=== PATIENT | male | born 1945 | race Asian ===

== ENCOUNTER 2024-12-07 14:13 | Emergency (ER) | payer OTHER, MEDICARE ==
[~2024-12-07] VITALS: Ht 172.7 cm; Wt 63.6 kg
--- NOTE | 2024-12-07 15:01 | DVH ---
CLINICAL INFORMATION: Fall injury with posterior head trauma. TECHNIQUE: Axial imaging was obtained through the brain without contrast. Coronal and sagittal reform atted images were obtained, reviewed, and stored. Images were reviewed in brain and bone windows. Al l CT scans at this medical facility are performed using dose modulation techniques as appropriate to a performed exam including the following: Automated exposure control was utilized; adjustment of the MA and/or KV according to patient size; and use of iterative reconstruction technique. CTDIvol = 53.3 3 mGy DLP = 863.9 mGy-cm COMPARISON: None FINDINGS: There is no acute intracranial hemorrhage. No mass effect or midline shift. The ventricles and sulci are within normal limits in size for age. Basal cisterns are patent. The calvarium is unre markable. Paranasal sinuses and mastoid air cells are clear. There is a small to moderate hematoma in the posterior scalp near the vertex. IMPRESSION: 1. No CT evidence of acute intracranial abnormality. 2. Small to moderate hematoma in the posterior scalp near the vertex.
[2024-12-07 15:06] LABS: Hematocrit 44.0 % (41.0-53.0); Hemoglobin 14.8 g/dL (13.5-17.5); Mean Corpuscular Hemoglobin 30.7 pg (28.0-32.0); Mean Corpuscular Volume 91.8 fL (80.0-100.0); Nucleated Red Blood Cells % 0.1 %
--- NOTE | 2024-12-07 15:11 | DVH ---
EXAM: CT CERVICAL WITHOUT CONTRAST HISTORY: Fall/trauma COMPARISON: CT HEAD WITHOUT CONTRAST on DOS: 12/07/24 CTDIvol 16.6 mGy, DLP 426.1 mGy*cm. TECHNIQUE: Multiple axial CT images of the spine were obtained using bone algorithm. Axial and magallon l reformatting was done. Bone and soft tissue windows were reviewed. FINDINGS: No evidence of definite acute fracture, spinal dislocation, or significant appearing acute subluxatio n is seen. Multilevel degenerative changes of the spine. IMPRESSION: No definite CT evidence of acute fracture or dislocation of the bony cervical spine.
[2024-12-07 15:12] LABS: Chloride 106 mmol/L (98-107); Potassium 4.1 mmol/L (3.5-5.1); Sodium 143 mmol/L (136-145)
[2024-12-07 15:13] LABS: Anion Gap 9 (5-15); Calcium 9.7 mg/dL (8.7-10.4); Carbon Dioxide 28 mmol/L (20-31)
[2024-12-07 15:18] LABS: BUN/Creatinine Ratio 10.6 (10.0-20.0); Blood Urea Nitrogen 12 mg/dL (9-23); Lipase 34 U/L (12-53)
[2024-12-07 15:19] LABS: Glucose 106 mg/dL (74-106)
[2024-12-07 15:24] LABS: Urine Protein, UAD 1+ (Negative)
[2024-12-07 16:01] VITALS: PULSE 66; RESP 18; O2SAT 95
--- NOTE | 2024-12-07 18:14 | ECG ---
[facility] Test Date: 2024-12-07 Test Time: 14:12:51 Pat Name: CHIDI IRELAND Department: [facility] ED Patient ID: [facility]-[id number] Room: Gender: M Neurosurgical Nurse: LONG : 1945 Requested By: ISRAEL NINO Order Number: [id number] Reading MD: Chidi Christianson Measurements Intervals [place] Rate: 61 P: 67 MO: 171 QRS: 42 QRSD: 91 T: 40 QT: 399 QTc: 402 Interpretive Statements Sinus rhythm Electronically Signed On 12-10-2024 14:59:50 PDT by Chidi Christianson Please click the below link to view image of tracing.
--- NOTE | 2024-12-07 18:25 | ED.PDOC ---
History of Present Illness HPI Comments 79 y/o M is BIBA in C-col[place] for c/c of syncope with fall and head injury. Per EMS personnel report, patient was standing and waiting in-line at a store when he, suddenly, became lightheaded and passed-out. He was stated to have fell backwards and had been caught by bystanders but still managed to hit the back of his head. Associated lump to posterior side of scalp. Patient reports no recollection of events. He is, currently, asymptomatic. Vital signs were stable. Time Seen by MD: 14:20 Reviewed Notes: Nurses Notes, [employer] Bl[employer] Notes, Medications, Allergies Allergies: Coded Allergies: Penicillins (Verified Allergy, Unknown, 12/07/24) Information Source: Patient, Emergency Med Personnel Mode of Arrival: EMS Severity: Moderate Timing: Hours Duration: Minutes Prehospital treatment: 12 Lead EKG, Accucheck, Plate Grainer, C-Collar Past Medical History PAST MEDICAL HISTORY: Denies Surgical History: Denies all surgeries Family History Family History: Reviewed,noncontributory to illness, No family hx of Cancer, No family hx of DM, No family hx of Heart devin, No family hx of HTN, No family hx ofKidney devin, No family hx of Liver devin, No family hx of Lung devin, No family hx of Stroke Social History Smoker: Non-Smoker Alcohol: Denies ETOH Use Drugs: Denies Drug Use Lives In: Home Constitutional: reports: weakness; denies: chills, diaphoresis, fatigue, fever, malaise, sweats, others EENTM: denies: blurred vision, double vision, ear bleeding, ear discharge, ear drainage, ear pain, ear ringing, eye pain, eye redness, hearing loss, mouth pain, mouth swelling, nasal discharge, nose bleeding, nose congestion, nose pain, photophobia, tearing, throat pain, throat swelling, voice changes, others Respiratory: denies: cough, hemoptysis, orthopnea, SOB at rest, shortness of breath, SOB with excertion, stridor, wheezing, others Cardiovascular: denies: chest pain, dizzy spells, diaphoresis, Dyspnea on exertion, edema, irregular heart beat, left arm pain, lightheadedness, palpitations, PND, syncope, others Gastrointestinal: denies: abdomen distended, abdominal pain, blood streaked bowels, constipated, diarrhea, dysphagia, difficulty swallowing, hematemesis, melena, nausea, poor appetite, poor fluid intake, rectal bleeding, rectal pain, vomiting, others Genitourinary: denies: burning, dysuria, flank pain, frequency, hematuria, incontinence, penile discharge, penile sore, pain, testicle pain, testicle swelling, urgency, others Neurological: reports: fainting, headache; denies: dizziness, left sided numbness, left sided weakness, numbness, paresthesia, pre-existing deficit, right sided numbness, right sided weakness, seizure, speech problems, tingling, tremors, weakness, others Musculoskeletal: denies: back pain, gout, joint pain, joint swelling, muscle pain, muscle stiffness, neck pain, others Integumetry: denies: bruises, change in color, change in hair/nails, dryness, laceration, lesions, lumps, rash, wounds, others Allergic/Immunocompromised: denies: Difficulty Healing, Frequent Infections, Hives, Itching, others Hematologic/Lymphatic: denies: anemia, blood clots, easy bleeding, easy bruising, swollen glands, others Endocrine: denies: excessive hunger, excessive sweating, excessive thirst, excessive urination, flushing, intolerance to cold, intolerance to heat, u nexplained weight gain, unexplained weight loss, others Psychiatric: denies: anxiety, bipolar disorder, depression, hopeless, panic disorder, schizophrenia, sleepless, suicidal, others All Other Systems: Reviewed and Negative (Comprehensive systems review obtained and negative except for what is stated in the HPI.) Physical Exam General Appearance: Mild Distress (Patient was in mild discomfort due to posterior scalp hematoma.), Normal HEENT: Head (Mild resolving hematoma noted to the superior aspect of the occipital lobe. No skull depressions or deformities. No blood loss noted. No raccoon or gunn signs.), Pharynx Normal, TMs Normal Neck: Full Range of Motion, Non-Tender, Normal, Normal Inspection Respiratory: Chest Non-Tender, Lungs Clear, No Accessory Muscle Use, No Respiratory Distress, Normal Breath Sounds Cardiovascular: No Edema, No JVD, No Murmur, No Gallop, Normal Peripheral Pulses, Regular Rate/Rhythm Breast Exam: Deferred Gastrointestinal: No Organomegaly, Non Tender, No Pulsatile Mass, Normal Bowel Sounds, Soft Genitalia: Deferred Pelvic: Deferred Rectal: Deferred Extremities: No calf tenderness, Normal capillary refill, Normal inspection, Normal range of motion, Non-tender, No pedal edema Neurologic: Alert Cerebellar Function: NOT DONE Reflexes: NOT DONE Skin: Dry, Normal Color, Warm Lymphatic: No Adenopathy Was a procedure done? Was a procedure done?: No EKG EKG : Pulse Rate (adult): 61 [place]: Normal Cardiac Rhythm: NSR Block: None Hypertrophy: None ST: Normal Differential Dx Considerations may include: vasovagal response, dehydration, electrolyte imbalance, hypotension, bradycardia, closed head injury, hematoma, UTI, among others X-Ray, Labs, Meds, VS Vital Signs Date Time Temp Pulse Resp B/P (MAP) Pulse Ox O2 Delivery O2 Flow Rate FiO2 12/07/24 18:25 61 12/07/24 18:00 98.1 62 18 146/76 (99) 98 98.1 12/07/24 16:01 66 18 95 Room Air* 0 21 12/07/24 16:01 98.2 66 18 124/71 (88) 95 98.2 12/07/24 14:15 98.6 62 16 132/82 97 98.6 12/07/24 14:13 61 Lab Test 12/07/24 17:53 12/07/24 16:12 12/07/24 15:07 12/07/24 14:46 Range/Units Troponin I High Sensitivity 5 4 3 L </=54 ng/L Urine Color Yellow Yellow Urine Clarity Turbid H Clear Urine pH 6.0 5.0-9.0 Urine Specific Doyle 1.023 1.001-1.035 Urine Protein 1+ H Negative Urine Ketones Trace Negative Urine Blood Trace H Negative /uL Urine Nitrite Negative Negative Urine Bilirubin Negative Negative Urine Urobilinogen 2 H Negative mg/dL Urine Leukocyte Esterase 1+ Negative /uL Urine RBC 81 0 - 3 /hpf Urine Microscopic WBC 25 H 0-3 /HPF Urine Squamous Epithelial Cells Few <5 /hpf Urine Calcium Oxalate Crystals Few None Seen Urine Bacteria None seen None Seen /hpf Urine Hyaline Casts Mod 0 - 2 /lpf Urine Mucus Few None Seen Urine Glucose Normal Normal mg/dL White Blood Count 7.7 4.4-10.8 10^3/uL Red Blood Count 4.80 4.5-5.90 10^6/uL Hemoglobin 14.8 13.5-17.5 g/dL Hematocrit 44.0 41.0-53.0 % Mean Corpuscular Volume 91.8 80.0-100.0 fL Mean Corpuscular Hemoglobin 30.7 28.0-32.0 pg Mean Corpuscular Hemoglobin Concent 33.5 32.0-36.0 g/dL Red Cell Distribution Width 14.2 11.8-14.3 % Platelet Count 265 140-450 10^3/uL Mean Platelet Volume 8.5 6.9-10.8 fL Neutrophils (%) (Auto) 74.4 37.0-80.0 % Lymphocytes (%) (Auto) 16.4 10.0-50.0 % Monocytes (%) (Auto) 5.7 0.0-12.0 % Eosinophils (%) (Auto) 2.6 0.0-7.0 % Basophils (%) (Auto) 0.9 0.0-2.0 % Neutrophils # (Auto) 5.7 1.6-8.6 10 ^3/uL Lymphocytes # (Auto) 1.3 0.4-5.4 10 ^3/uL Monocytes # (Auto) 0.4 0-1.3 10 ^3/uL Eosinophils # (Auto) 0.2 0-0.8 10 ^3/uL Basophils # (Auto) 0.1 0-0.2 10 ^3/uL Nucleated Red Blood Cells 0.1 % Sodium Level 143 136-145 mmol/L Potassium Level 4.1 3.5-5.1 mmol/L Chloride Level 106 98-107 mmol/L Carbon Dioxide Level 28 20-31 mmol/L Anion Gap 9 5-15 Blood Urea Nitrogen 12 9-23 mg/dL Creatinine 1.13 0.700-1.30 mg/dL Glomerular Filtration Rate Calc 67 >90 mL/min BUN/Creatinine Ratio 10.6 10.0-20.0 Serum Glucose 106 74-106 mg/dL Lactic Acid Level 1.1 0.4-2.0 mmol/L Calcium Level 9.7 8.7-10.4 mg/dL Lipase 34 12-53 U/L X-Ray, Labs, Meds, VS Comment All studies performed the ED were evaluated by me personally. CT of the head was unremarkable for any acute intracranial process. No subarachnoid hemorrhage or subdural hematoma. No skull fracture noted. Hematoma was appreciated. Serum studies was unremarkable for any systemic concerns while urinalysis confirmed a UTI. It appears probable that the UTI may have been the offending culprit in this event. Patient was given 1st dose of antibiotics prior to discharge. Advised patient utilize medication as directed Time of 1ST Reevaluation: 20:01 Reevaluation 1ST: Improved Consultation: PCP Patient Education/Counseling: Diagnosis, Treatment Family Education/Counseling: Diagnosis, Treatment, No Family Present SEPSIS Sepsis Screen Recent Procedure: No On Antibiotic Therapy: No Respiratory Rate >20: No Heart Rate >90: No Temp<36 C (96.8 F) or >38.3 C: No SBP <90 or MAP <65 mmHG: No New Acute Mental Status Change: No Is the patient on CPAP, BIPAP,: No Physician Orders Head Without Contrast (12/07/24 14:20) Cervical Without Contrast (12/07/24 14:20) Vital Signs Date Time Temp Pulse Resp B/P (MAP) Pulse Ox O2 Delivery O2 Flow Rate FiO2 12/07/24 18:25 61 12/07/24 18:00 98.1 62 18 146/76 (99) 98 98.1 12/07/24 16:01 66 18 95 Room Air* 0 21 12/07/24 16:01 98.2 66 18 124/71 (88) 95 98.2 12/07/24 14:15 98.6 62 16 132/82 97 98.6 12/07/24 14:13 61 Laboratory Tests Test 12/07/24 14:46 Lactic Acid Level 1.1 mmol/L (0.4-2.0) White Blood Count 7.7 10^3/uL (4.4-10.8) Departure 1 Departure Time of Disposition: 20:02 Impression: Primary Impression: Metabolic encephalopathy Additional Impression: UTI (urinary tract infection) Disposition: 01 HOME / SELF CARE / HOMELESS Condition: Stable Additional Instructions: Advised patient utilize antibiotics as directed until completion. Good hydration and healthy nutrition throughout. e-Prescriptions Levofloxacin Hemihydrate (LEVAQUIN 500 MG) 500 Mg Tab 1 TAB PO DAILY, #7 TAB Prov: ISRAEL NINO PAC 12/07/24 Discharged With: Self, Spouse Critical Care Note Critical Care Time?: No Stability Stability form required: No Heart Score Heart Score: Heart Score Response (Comments) Value History N/A 0 EKG N/A 0 Age N/A 0 Risk Factors N/A 0 Troponin N/A 0 Total 0 I personally scribed for ISRAEL NINO PAC ([email or web address]) on 12/07/24 at 18:25. Electronically submitted by Bennett Reynoso [email or web address]). ISRAEL NINO PAC Dec 07, 2024 18:25
[2024-12-07] MEDS ORDERED: LEVO500T91 PO (20:03)
[2024-12-07] MEDS: levoFLOXacin 250 MG TAB PO ONE (20:19)
[2024-12-07 20:25] VITALS: BP 149/78; PULSE 70; RESP 19; TEMP 97.8; O2SAT 98
== END 2024-12-07 20:31 | disposition home or self-care (01) ==
LOC: EDBD 14:13 → ER 14:20
DX: S00.93XA Contusion of unspecified part of head, initial encounter (principal); G93.41 Metabolic encephalopathy; N39.0 Urinary tract infection, site not specified; Z88.0 Allergy status to penicillin; W19.XXXA Unspecified fall, initial encounter; Y93.89 Activity, other specified; Y92.89 Other specified places as the place of occurrence of the external cause; Y99.8 Other external cause status
CPT/HCPCS: 36415; 70450; 72125; 80048; 81001; 83605; 83690; 84484; 85025; 93005